=== PATIENT | female | born 1965 | race Caucasian/White ===

== ENCOUNTER 2021-12-08 14:54 | Outpatient (REF) | payer SELFPAY ==
[2021-12-09 12:29] LABS: COVID-19 RT-PCR UVMMC Result Negative (Negative)
== END 2021-12-08 14:55 | disposition home or self-care (01) ==
LOC: LBN 14:54
PROVIDERS: Visit Provider Physician Assistant Medical
DX: R09.89 Other specified symptoms and signs involving the circulatory and respiratory systems (principal); Z20.822 Contact with and (suspected) exposure to COVID-19
CPT/HCPCS: U0003

== ENCOUNTER 2024-08-14 12:38 | Outpatient (CLI) | payer BC, SELFPAY ==
--- NOTE | 2024-08-14 12:30 | RT.EKG_ITS ---
APPROVED REPORT Exam: Resting ECG Reason for Exam: cardiac evaluation Patient Location: O HR:67 bpm ECG Measurements Heart Rate 67 AXIS NE 171 P 71 QRSd 89 QRS 24 QT 426 T 38 QTc 450 Conclusion Sinus rhythm...normal P axis, V-rate 50- 99 Normal Electrocardiogram
== END 2024-08-14 12:39 | disposition home or self-care (01) ==
LOC: DI.CARD 12:39
PROVIDERS: Visit Provider Registered Nurse
DX: I48.91 Unspecified atrial fibrillation (principal)
CPT/HCPCS: 93010

== ENCOUNTER 2024-08-14 13:52 | Outpatient (CLI) | payer BC, SELFPAY | END 2024-08-14 13:53 | disposition home or self-care (01) | LOC: CARDOPNVT 13:52 | PROVIDERS: Visit Provider Registered Nurse | DX: R00.2 Palpitations (principal) | CPT/HCPCS: 93270 ==

== ENCOUNTER 2024-09-17 07:31 | Outpatient (CLI) | payer BC, SELFPAY ==
--- NOTE | 2024-09-17 12:24 | W.CARDEVENT ---
Date of service: 09/17/24 Time of Service: 12:25 Cardiac Event Recorder Referring Provider:: Saloni Newton Indications:: Palpitations Cardiac Event Note: This is a cardiac event monitor. Patient was monitored for 28 days and 17 hours. Rhythm throughout was sinus. Average heart rate was 75. Minimum was 57, maximum was 139.. There were rare ventricular ectopic beats. There was 1 run of nonsustained ventricular tachycardia 4 beats in duration. There were several self-limited atrial runs. Some of these were aberrantly conducted. Longest was 9 beats in duration There was no atrial fibrillation, no high-grade AV block, no pauses greater than 3 seconds There were no apparent patient symptoms
== END 2024-09-17 07:32 | disposition home or self-care (01) ==
LOC: CARDOPNVT 07:31
PROVIDERS: Visit Provider Internal Medicine Cardiovascular Disease
DX: I47.10 Supraventricular tachycardia, unspecified (principal)

== ENCOUNTER 2024-10-15 01:06 | Outpatient (CLI) | payer BC, SELFPAY ==
--- NOTE | 2024-10-15 | DI.MAMMO_ITS ---
Exam(s) MAMMO SCREENING EXAM: MAMMO SCREENING CLINICAL HISTORY: Screening, Z12.31 TECHNIQUE: Bilateral full field digital CC and MLO mammographic images were obtained with 3D tomosyn thesis and utilizing computer aided detection (CAD). COMPARISON: Available for comparison. FINDINGS: Masses/Architectural Distortion: There is an area of nodularity in the superior aspect of the left br east on the MLO view 4 cm from the nipple. This may represent overlying fibroglandular tissue. Spot compression views requested for further evaluation. Microcalcifications: No suspicious pleomorphic-type are seen. Skin Thickening/Nipple Retraction: None. IMPRESSION: 1. Area of nodularity in the superior retroareolar region of the left breast on the MLO view. 2. Spot compression views requested for further evaluation. Targeted left breast ultrasound may be i ndicated at that time. BI-RADS Category 0 - Incomplete: Need additional imaging evaluation Breast Density - Category B - Scattered areas of fibroglandular density Breast density category C or D implies that the patient has dense breast tissue. Dense breast tissue is very common and is not abnormal but dense breast tissue can make it harder to find cancer on a ma mmogram. Also, dense breast tissue may increase their breast cancer risk. This information about the result of the mammogram report was provided to the patient to raise their awareness. Use this report when you speak with the patient about their risks for breast cancer, which includes their family hist ory. At that time, you may recommend for more screening tests (Ultrasound or MRI) as they might be us eful based on their risk. A negative radiographic report should not delay biopsy if a dominant or clinically suspicious mass is present. Up to ten percent of cancers are not identified on mammography. A negative report may reinforce clinical impression. Adenosis and dense breasts may obscure an underlying neoplasm. False positive reports average 6 to 10%. Patient will receive a letter notifying them of these results.
== END 2024-10-15 01:26 ==
LOC: DI 01:06
PROVIDERS: Visit Provider Nurse Practitioner Family
DX: Z12.31 Encounter for screening mammogram for malignant neoplasm of breast (principal); R92.323 Mammographic fibroglandular density, bilateral breasts
CPT/HCPCS: 77063; 77067

== ENCOUNTER 2024-10-21 01:06 | Outpatient (CLI) | payer BC, SELFPAY ==
--- NOTE | 2024-10-21 | DI.US_ITS ---
Exam(s) MG MAMMO SCREEN CALL BACK UNI US BREAST LT LIMITED EXAM: MG MAMMO SCREEN CALL BACK UNI CLINICAL HISTORY: Area of nodularity in superior retroareolar region, lt breast, R92.8. TECHNIQUE: Mediolateral oblique spot compression digital Mammography views of the leftbreast with T omosynthesis and left breast ultrasound. COMPARISON: MG MG MAMMO SCREENING DIG BILAT from 12/31/2010 MG MG MAMMO SCREENING from 10/15/2024 FINDINGS: Mammography/Tomosynthesis: Masses: None seen. Architectural Distortion: None seen. Microcalcifictions: No suspicious pleomorphic-type are seen. Coarse calcifications noted. Skin Thickening/Nipple Retraction: None. Left breast US: Echotexture: Normal appearance of the glandular tissue. Shadowing: No suspicious foci. Cyst: None. Solid lesions: None seen. Ductal dilation: None. IMPRESSION: 1. No evidence of malignancy is noted. 2. Unless there is more urgent need, follow-up screening mammography is recommended, as per [place] [employer] guidelines. 3. The findings were discussed with the patient on the date of the examination. BI-RADS Category 2 - Benign Findings Breast Density - Category B - Scattered areas of fibroglandular density A negative radiographic report should not delay biopsy if a dominant or clinically suspicious mass is present. Up to ten percent of cancers are not identified on mammography. A negative report may reinforce clinical impression. Adenosis and dense breasts may obscure an underlying neoplasm. False positive reports average 6 to 10%. Patient will receive a letter notifying them of these results.
== END 2024-10-21 01:26 ==
PROVIDERS: PCP Nurse Practitioner Family; Visit Provider Nurse Practitioner Family
DX: Z12.31 Encounter for screening mammogram for malignant neoplasm of breast (principal); R92.8 Other abnormal and inconclusive findings on diagnostic imaging of breast; R92.323 Mammographic fibroglandular density, bilateral breasts; D24.2 Benign neoplasm of left breast
CPT/HCPCS: 76642; 77063; 77067

== ENCOUNTER 2025-06-02 03:21 | Outpatient (CLI) | payer BC, SELFPAY ==
--- NOTE | 2025-06-02 05:25 | ETT_ITS ---
APPROVED REPORT Exam: Exercise Treadmill Patient Location: Out-Patient Room/Bed: Stress Nurse: Krystle Meléndez RN Ordering Provider:CARMINE VARGHESE, Contact Number: BMI: 26.94 Baseline Rhythm: Sinus Rhythm Comment: Rare PAC Indications: Chest pain Medical History Medical History: EF 60%, afib, low tension glaucoma Cardiac Medications: Metoprolol succinate Allergies: Excerdrin PM, pencillins Cardiac Risk Factors: Smoker Previous Cardiac Procedures: None Pretest Chest Pain Characteristics: None Exercise History: Indeterminate Physical Disabilities: None Lung Sounds: Clear/diminished throughout Heart Sounds: Regular Stress Test Details Test: Exercise stress testing was performed using a Ben protocol. Rest Stress HR Resting HR Supine: 79 bpm Max Heart Rate (APMHR): 161 bpm Resting HR Standin bpm Target HR (85% APMHR): 137 bpm Max HR Achieved: 160 bpm % of APMHR: 99 Recovery HR: 95 bpm HR response to stress: Normal HR response to stress BP Resting BP Supine: 132/84 mmHg Resting BP Standin/86 mmHg Max BP: 152/78 mmHg Recovery BP: 124/72 mmHg BP response to stress: Normal blood pressure response to stress. ECG Resting ECG: Sinus Rhythm Ectopy: Rare PAC Stress ECG: Sinus Tachycardia ST Change: No significant ST segment changes noted Recovery ECG: Sinus Rhythm Recovery ST Change: No significant ST segment changes noted Clinical Reason for Termination: Patient request to stop. Stress Symptoms: General fatigue Exercise duration: 08 min85 sec Highest Stage Reached: Stage 3: 3.4 mph at 14% grade. Exercise capacity: 10.16 METs Angina Score: None Carmichael Treadmill Score: 7.8 Rate Pressure Product: [id number] Stress ECG Conclusion 1. Resting electrocardiogram is normal 2. Patient exercised on the Ben protocol and completed workload of 10 METS 3. Normal heart rate and blood pressure response to exercise. The patient achieved 99% of maximal predicted heart rate for age 4. There was no electrocardiographic evidence of myocardial ischemia 5. There were no significant dysrhythmias Carmichael Treadmill Score is 7.8 which is Low risk. Stress Test Summary STAGE Time (mins) Speed (mph) Grade (%) HR BP SpO2 SYMPTOMS METS Supine 79 132/84 95% Standing 90 136/86 1 3 1.7 10 132 144/78 97% 4.5 2 6 2.5 12 143 7 3 9 3.4 14 158 10 1 min recovery 140 152/78 95% 3 min recovery 98 152/78 6 min recovery 94 124/72 96% Patient requested to stop treadmill r/t to general fatigue. Patient met 99% of her max HR. All symptoms resolved at test end. Patient left ambulatory in no apparent distress.
== END 2025-06-02 03:41 ==
PROVIDERS: PCP Nurse Practitioner Family; Visit Provider Registered Nurse
DX: R07.9 Chest pain, unspecified (principal)
CPT/HCPCS: 93017